=== PATIENT | male | born 1965 | race Caucasian/White ===

== ENCOUNTER 2021-02-09 07:27 | Outpatient (CLI) | payer BC, SELFPAY ==
[2021-02-09 09:13] LABS: Alanine Aminotransferase 41 U/L (4-50); Alkaline Phosphatase 66 U/L (38-126); Anion Gap 8 mmol/L (8-16); Aspartate Amino Transferase 35 U/L (17-59); Bilirubin,Total 0.8 mg/dL (0.2-1.3); Blood Urea Nitrogen 16 mg/dL (9-20); Calcium 9.5 mg/dL (8.4-10.2); Carbon Dioxide 29 mmol/L (22-30); Chloride 102 mmol/L (98-107); Cholesterol 198 mg/dL (0-200); Estimated Glomerular Filt Rate > 60; Glucose 117 mg/dL (65-110); HDL Direct 27 mg/dL; Potassium 4.3 mmol/L (3.4-5.0); Sodium 139 mmol/L (137-145); Triglycerides 160 mg/dL (<150)
[2021-02-09 09:24] LABS: LDL Cholesterol Direct 117 mg/dL
== END 2021-02-09 07:28 | disposition home or self-care (01) ==
LOC: ANHLAB 07:29
PROVIDERS: PCP Emergency Medicine; Visit Provider Emergency Medicine
DX: E78.5 Hyperlipidemia, unspecified (principal); E11.9 Type 2 diabetes mellitus without complications
CPT/HCPCS: 36415; 80053; 80061; 83036

== ENCOUNTER 2022-02-28 06:56 | Outpatient (CLI) | payer BC, SELFPAY ==
[2022-02-28 07:29] LABS: Alanine Aminotransferase 39 U/L (6-50); Albumin Level 4.7 g/dL (3.5-5.1); Alkaline Phosphatase 78 U/L (38-126); Anion Gap 9 mmol/L (8-16); Aspartate Amino Transferase 33 U/L (17-59); Bilirubin,Total 0.7 mg/dL (0.2-1.3); Blood Urea Nitrogen 14 mg/dL (9-20); Calcium 9.3 mg/dL (8.4-10.2); Carbon Dioxide 28 mmol/L (22-30); Chloride 101 mmol/L (98-107); Cholesterol 192 mg/dL (0-200); Estimated Glomerular Filt Rate > 60; Glucose 135 mg/dL (65-110); HDL Direct 28 mg/dL; Potassium 4.4 mmol/L (3.4-5.0); Sodium 138 mmol/L (137-145); Triglycerides 259 mg/dL (<150)
[2022-02-28 07:39] LABS: Hemoglobin A1C 6.3 % (<5.7)
[2022-02-28 07:42] LABS: LDL Cholesterol Direct 121 mg/dL
[2022-02-28 07:58] LABS: Creatinine Urine 71.7 mg/dL
[2022-02-28 08:01] LABS: Prostate Specific Antigen 1.7 ng/mL (< OR = 4.0)
[2022-02-28 08:03] LABS: MALB Creatinine Ratio 79.2 mg/g (0-30); Microalbumin Urine Random 56.8 mg/L (0-16.7)
== END 2022-02-28 06:57 | disposition home or self-care (01) ==
PROVIDERS: PCP Emergency Medicine; Visit Provider Emergency Medicine
DX: E78.5 Hyperlipidemia, unspecified (principal); I10 Essential (primary) hypertension; E11.9 Type 2 diabetes mellitus without complications; Z12.5 Encounter for screening for malignant neoplasm of prostate
CPT/HCPCS: 36415; 80053; 80061; 82043; 83036; 84153; G0103

== ENCOUNTER 2023-04-08 10:14 | Outpatient (CLI) | payer BC, SELFPAY ==
[2023-04-08 10:58] LABS: Alanine Aminotransferase 44 U/L (6-50); Albumin Level 4.7 g/dL (3.5-5.1); Alkaline Phosphatase 69 U/L (38-126); Anion Gap 11 mmol/L (8-16); Aspartate Amino Transferase 35 U/L (17-59); Bilirubin,Total 0.8 mg/dL (0.2-1.3); Blood Urea Nitrogen 17 mg/dL (9-20); Calcium 9.7 mg/dL (8.4-10.2); Carbon Dioxide 26 mmol/L (22-30); Chloride 102 mmol/L (98-107); Cholesterol 197 mg/dL (0-200); Estimated Glomerular Filt Rate > 60; Glucose 110 mg/dL (65-110); HDL Direct 24 mg/dL; Potassium 4.1 mmol/L (3.4-5.0); Sodium 139 mmol/L (137-145); Triglycerides 125 mg/dL (<150)
[2023-04-08 11:20] LABS: LDL Cholesterol Direct 135 mg/dL
[2023-04-08 11:43] LABS: Creatinine Urine 134.5 mg/dL
[2023-04-08 11:47] LABS: MALB Creatinine Ratio 26.5 mg/g (0-30); Microalbumin Urine Random 35.6 mg/L (0-16.7)
[2023-04-08 12:43] LABS: Hemoglobin A1C 6.2 % (<5.7)
== END 2023-04-08 10:15 | disposition home or self-care (01) ==
LOC: ANHLAB 10:15
PROVIDERS: PCP Emergency Medicine; Visit Provider Emergency Medicine
DX: E11.9 Type 2 diabetes mellitus without complications (principal); E78.5 Hyperlipidemia, unspecified
CPT/HCPCS: 36415; 80053; 80061; 82043; 83036

== ENCOUNTER 2023-06-17 07:50 | Outpatient (CLI) | payer BC, SELFPAY | END 2023-06-17 07:51 | disposition home or self-care (01) | LOC: ANHAUDIO 07:51 | PROVIDERS: PCP Emergency Medicine; Visit Provider Emergency Medicine | DX: H61.22 Impacted cerumen, left ear (principal); H93.12 Tinnitus, left ear | CPT/HCPCS: 99199 ==

== ENCOUNTER 2024-05-24 09:34 | Outpatient (CLI) | payer OTHER, SELFPAY ==
[2024-05-24 10:02] LABS: Alanine Aminotransferase 52 U/L (6-50); Albumin Level 4.6 g/dL (3.5-5.1); Alkaline Phosphatase 68 U/L (38-126); Anion Gap 10 mmol/L (4-12); Aspartate Amino Transferase 34 U/L (17-59); Blood Urea Nitrogen 16 mg/dL (9-20); Calcium 9.6 mg/dL (8.4-10.2); Carbon Dioxide 28 mmol/L (22-30); Chloride 101 mmol/L (98-107); Cholesterol 210 mg/dL (0-200); Estimated Glomerular Filt Rate > 60; Glucose 132 mg/dL (65-110); HDL Direct 31 mg/dL; Potassium 4.1 mmol/L (3.4-5.0); Sodium 139 mmol/L (137-145); Triglycerides 179 mg/dL (<150)
[2024-05-24 10:10] LABS: Hemoglobin A1C 7.1 % (<5.7)
[2024-05-24 10:13] LABS: LDL Cholesterol Direct 140 mg/dL
[2024-05-24 10:19] LABS: Vitamin D 25 Hydroxy 39.7 ng/mL
[2024-05-24 10:30] LABS: Prostate Specific Antigen 3.2 ng/mL (< OR = 4.0)
== END 2024-05-24 09:35 | disposition home or self-care (01) ==
LOC: ANHLAB 09:36
PROVIDERS: PCP Emergency Medicine; Visit Provider Emergency Medicine
DX: E78.5 Hyperlipidemia, unspecified (principal); E11.9 Type 2 diabetes mellitus without complications; E55.9 Vitamin D deficiency, unspecified; Z12.5 Encounter for screening for malignant neoplasm of prostate
CPT/HCPCS: 36415; 80053; 80061; 82306; 83036; 84153; G0103